=== PATIENT | male | born 1995 | race Caucasian/White ===

== ENCOUNTER 2019-01-02 15:42 | Emergency (ER) | payer MEDICAID ==
[~2019-01-02] VITALS: Ht 157.5 cm; Wt 75.0 kg
[2019-01-02 15:55] VITALS: BP 145/99
[2019-01-02] MEDS ORDERED: ACETAMINOPHEN 500 MG TABLET PO ONE (17:00)
[2019-01-02] MEDS ORDERED: CEPHALEXIN MONOHYDRATE 500 MG CAPSULE PO ONE (17:00)
== END 2019-01-02 18:01 | disposition home or self-care (01) ==
LOC: EMS 15:44
DX: L60.0 Ingrowing nail (principal)